=== PATIENT | male | born 1950 ===

== ENCOUNTER 2025-06-25 11:50 | Emergency (ER) | payer SELFPAY ==
[2025-06-25] MEDS ORDERED: Sodium Chloride 0.9% 2.5 ML Syringe FLUSH PRN ×2 (11:56→12:12)
[2025-06-25] MEDS ORDERED: Sodium Chloride 0.9% 10 ML Syringe FLUSH PRN ×2 (11:56→12:12)
[2025-06-25] MEDS ORDERED: Diltiazem 25 MG/5 ML SDV IVPUSH ONE (12:13)
[2025-06-25] MEDS: Lactated Ringers 1,000 ML IV ONE ×2 (12:35→14:20)
[2025-06-25 12:46] LABS: BASOPHILS ABSOLUTE AUTO 0.05 K/uL (0.00-0.20); BASOPHILS PERCENT AUTO 0.2 % (0.0-1.0); EOSINOPHILS ABSOLUTE AUTO 0.08 K/uL (0.00-0.45); EOSINOPHILS PERCENT AUTO 0.3 % (0.0-6.0); IMMATURE GRAN ABSOLUTE AUTO 0.16 K/uL (0.00-0.05); IMMATURE GRAN PERCENT AUTO 0.6 % (0.0-0.4); LYMPHOCYTES ABSOLUTE AUTO 0.29 K/uL (1.00-4.80); LYMPHOCYTES PERCENT AUTO 1.2 % (24.0-44.0); MEAN PLATELET VOLUME 11.2 fL (9.4-12.4); MONOCYTES ABSOLUTE AUTO 0.85 K/uL (0.00-0.80); MONOCYTES PERCENT AUTO 3.4 % (0.0-8.0); NEUTROPHILS ABSOLUTE AUTO 23.68 K/uL (1.80-7.70); NEUTROPHILS PERCENT AUTO 94.3 % (41.0-71.0); NRBC ABSOLUTE 0.00 K/uL (0.00-0.02); NRBC PERCENT 0.0 /100WBC (0.0-0.2); PLATELET COUNT,PLT 329 K/uL (150-400); RED BLOOD CELL COUNT 3.13 M/uL (4.52-5.90); WHITE BLOOD CELL COUNT,WBC 25.11 K/uL (3.9-11.3)
[2025-06-25 12:56] LABS: BICARBONATE,VENOUS 7.0 mEq/L (22-29); PCO2 VENOUS 23.0 mmHG (41-51); PH,VENOUS 7.07 (7.32-7.43); PO2 VENOUS 28.0 mmHG (35-45)
[2025-06-25 12:57] LABS: BASE EXCESS VENOUS -21.7 (-2.0-3.0)
[2025-06-25 13:17] LABS: A/G RATIO 0.6 (0.9-1.6); ALANINE AMINOTRANSFERASE,ALT 11.0 IU/L (14-63); ASPARTATE AMNIOTRANSFERASE,AST 9.0 IU/L (15-37); BILIRUBIN TOTAL 0.5 mg/dL (0.2-1.0); CARBON DIOXIDE,CO2 6.5 mmol/L (21.0-32.0); CHLORIDE,CL 103.0 mmol/L (98-107); CREATINE KINASE,CK 59.0 U/L (26-308); CREATININE 17.8 mg/dL (0.8-1.3); EST CRCL DRUG DOSING (CG) 3.29 mL/min; GLUCOSE RANDOM 98.0 mg/dL (74-106); PHOSPHORUS 8.6 mg/dL (2.6-4.7); POTASSIUM,K 6.0 mmol/L (3.5-5.1); PROTEIN TOTAL,TP 9.8 g/dL (6.4-8.2); SODIUM,NA 133.0 mmol/L (136-148)
[2025-06-25] MEDS: cefTRIAXone 2 GM in Water For Injection, Sterile 20 ML IVPUSH ONE (13:17)
[2025-06-25 13:18] LABS: IRON,FE 23.0 ug/dL (50-175); PERCENT FE SATURATION 9.5 % (20-55)
[2025-06-25 13:21] LABS: CHOLESTEROL HDL 35.0 mg/dL (40-60); CHOLESTEROL LDL CALCULATED 56.0 mg/dL (60-180); CHOLESTEROL TOTAL 107.0 mg/dL (50-200); VLDL CHOLESTEROL 15.0 mg/dL (5-55)
[2025-06-25 13:28] LABS: APPEARANCE,URINE CLOUDY
[2025-06-25 13:29] LABS: GLUCOSE,URINE NEGATIVE (NEGATIVE); OCCULT BLOOD,URINE LARGE (NEGATIVE)
[2025-06-25 13:36] LABS: BLOOD UREA NITROGEN,BUN 147.0 mg/dL (7.0-18.0)
[2025-06-25 13:36] LABS: EPITHELIAL CELLS,URINE NOT SEEN (NONE-FEW)
[2025-06-25] MEDS: Albuterol 0.083% 2.5 MG/3 ML Neb Soln NEB ONE (13:39)
[2025-06-25 13:41] LABS: ESTIMATED GFR 2.0 mL/min (>60)
[2025-06-25] MEDS ORDERED: 50% Dextrose in Water 50 ML Syringe IVPUSH PRN (13:45)
[2025-06-25] MEDS: Insulin Regular, Human 100 Units/ML 10 ML Vial IVPUSH ONE (14:17)
[2025-06-25] MEDS: Furosemide 40 MG/4 ML VIAL IVPUSH ONE ×2 (14:19→15:17)
[2025-06-25] MEDS: 50% Dextrose in Water 50 ML Syringe IVPUSH ONE (14:19)
[2025-06-25] MEDS: Calcium Gluconate 10% 1 GM/10 ML SDV IVPUSH ONE (14:19)
[2025-06-25 14:21] LABS: INR 0.99 (0.86-1.11)
[2025-06-25 14:31] LABS: BASE EXCESS VENOUS -17.4 (-2.0-3.0); BICARBONATE,VENOUS 9.0 mEq/L (22-29); PCO2 VENOUS 23.0 mmHG (41-51); PH,VENOUS 7.2 (7.32-7.43); PO2 VENOUS 20.0 mmHG (35-45)
[2025-06-25 14:57] LABS: BLOOD UREA NITROGEN,BUN 145.0 mg/dL (7.0-18.0); CARBON DIOXIDE,CO2 10.6 mmol/L (21.0-32.0); CHLORIDE,CL 103.0 mmol/L (98-107); CREATININE 16.3 mg/dL (0.8-1.3); EST CRCL DRUG DOSING (CG) 3.59 mL/min; GLUCOSE RANDOM 123.0 mg/dL (74-106); POTASSIUM,K 6.1 mmol/L (3.5-5.1); SODIUM,NA 133.0 mmol/L (136-148)
[2025-06-25] MEDS: Sodium Polystyrene Sulfonate 15 GM/60 ML Susp 60 ML Bot PO ONE (14:57)
[2025-06-25 14:58] LABS: ESTIMATED GFR 3.0 mL/min (>60)
[2025-06-25 16:03] LABS: BASE EXCESS VENOUS -14.2 (-2.0-3.0); BICARBONATE,VENOUS 11.0 mEq/L (22-29); PCO2 VENOUS 23.0 mmHG (41-51); PH,VENOUS 7.29 (7.32-7.43); PO2 VENOUS 18.0 mmHG (35-45)
[2025-06-25 16:23] LABS: BLOOD UREA NITROGEN,BUN 140.0 mg/dL (7.0-18.0); CARBON DIOXIDE,CO2 10.5 mmol/L (21.0-32.0); CHLORIDE,CL 103.0 mmol/L (98-107); CREATININE 15.7 mg/dL (0.8-1.3); EST CRCL DRUG DOSING (CG) 3.73 mL/min; ESTIMATED GFR 3.0 mL/min (>60); GLUCOSE RANDOM 109.0 mg/dL (74-106); POTASSIUM,K 4.9 mmol/L (3.5-5.1); SODIUM,NA 134.0 mmol/L (136-148)
== END 2025-06-25 17:32 ==
LOC: MW.ED 11:50
DX: N17.9 Acute kidney failure, unspecified (principal); N39.0 Urinary tract infection, site not specified; N13.30 Unspecified hydronephrosis; E87.5 Hyperkalemia; R53.1 Weakness; R31.0 Gross hematuria; R33.9 Retention of urine, unspecified; D50.9 Iron deficiency anemia, unspecified; J18.9 Pneumonia, unspecified organism; Z87.891 Personal history of nicotine dependence
CPT/HCPCS: 36415; 71250; 74176; 80048; 80053; 80061; 81001; 82550; 82803; 82947; 83550; 83605; 83735; 84100; 85025; 85610; 87040; 87086; 87088; 87186; 93005; 94640; 96365; 96366; 96368; 96375; 96376; 99285; A4216; A9270; J0612; J0696; J1271; J1815; J1938; J7070; J7120; J7613; 93010; 99291; J3490